=== PATIENT | male | born 1970 | race Caucasian/White ===

== ENCOUNTER 2016-11-15 16:15 | Emergency (ER) | payer SELFPAY ==
--- NOTE | ~2016-11-15 | ER ---
PATIENT'S NAME: PAO CRUZ [facility] AGE: 45 Y [address] ROOM: [place] [address] LOCATION: [facility] ADMIT DATE: 11/15/2016 ER/Outpatient Report DISCHARGE DATE: 11/15/2016 FAMILY PHYSICIAN: PHYSICIAN, NO ATTENDING PHYSICIAN: Monica Dugan Time of Arrival: 1615 hours. Time of Evaluation: 1640 hours. CHIEF COMPLAINT: Low back pain. HISTORY OF PRESENT ILLNESS: This is a 45-year-old male, who presented to the ER. He states he has been having some low back pain for the last three days. The patient states he noticed it after he repainted the house. He states that he does not know any of direct injury to the back, but he was having some stabbing pain in the right lower back, and it does radiate down his leg. He describes his pain as stabbing in nature, and worsens with range of motion. He states that he has had no troubles with bowel or bladder. He denies any other problems at this time. He states that he does have a history of previous back problems with herniated disk that was diagnosed in [place] several years ago. ALLERGIES: NO KNOWN ALLERGIES. MEDICATIONS: None. PAST MEDICAL HISTORY: Previous back problems. SOCIAL HISTORY: He smokes half pack a day for last 36 years. He denies any drug or alcohol use. REVIEW OF SYSTEMS: All the systems were reviewed, and were negative with the exception of those discussed in the HPI. PHYSICAL EXAMINATION: VITAL SIGNS: Height is 6 feet 4 inches and stated weight 93.6 kg taken. Blood pressure was 151/99, pulse was 87, respirations were 16, temperature was 97.7 degrees tympanically, and saturations were 95% on room air. Ostrander Coma Score is 15. PATIENT'S NAME: PAO CRUZ [facility] AGE: 45 Y [address] ROOM: [place] [address] LOCATION: [facility] ADMIT DATE: 11/15/2016 ER/Outpatient Report DISCHARGE DATE: 11/15/2016 FAMILY PHYSICIAN: PHYSICIAN, ALEXSANDRA ATTENDING PHYSICIAN: Monica Dugan GENERAL: Alert, calm, and well-developed 45-year-old, in mild distress. HEENT: Head is normocephalic. He does display moist mucous membranes. LUNGS: Clear to auscultation bilaterally. No wheezes or crackles. HEART: Regular rate and rhythm. ABDOMEN: Soft and nontender. He has good bowel sounds throughout. EXTREMITIES: He does have decreased range of motion of his lower extremities secondary to low back pain. He does have tenderness with palpation over the paraspinous muscles over the right lower back. He has equal reflexes in bilateral lower extremities. He has good sensation bilaterally to lower extremities. NEUROLOGICAL: Cranial nerves II through XII were grossly intact. Gait was steady with a slight limp. LABORATORY DATA AND X-RAYS: None were done. IMPRESSION: Low back pain. ASSESSMENT AND PLAN: The patient rested comfortably the entire stay while he was here. I did give him a shot of Toradol 60 mg intramuscularly along with Flexeril 10 mg p.o. He did tolerate this well. I will dismiss him to home with a prescription for prednisone and Flexeril to use as directed. I advised him to ice and do some gentle stretches, and he needs to follow up with his primary care physician for followup care. The patient states that he does not have a primary care physician in this area. Therefore, I gave him business cards for the clinics here in [place]. The patient understands and agrees with care. EFRAIN DOE PA-C FOR MD CHAN CASTRO/cl /[id number] d: t: 11/24/16 1623, OUTPATIENT REPORT
== END 2016-11-15 17:30 | disposition disaster alternative care site (69) ==
LOC: GMED 16:15
DX: M54.5 Low back pain (principal); F17.210 Nicotine dependence, cigarettes, uncomplicated; Z71.6 Tobacco abuse counseling
CPT/HCPCS: J1885